=== PATIENT | female | born 1975 | race Caucasian/White ===

== ENCOUNTER 2023-07-24 06:29 | Outpatient (RCR) | payer OTHER, SELFPAY | END 2023-07-24 23:59 | disposition home or self-care (01) | LOC: RPT 06:29 | PROVIDERS: ATTENDING PHYSICIAN Radiology Radiation Oncology; FAMILY PHYSICIAN Family Medicine | DX: I97.2 Postmastectomy lymphedema syndrome (principal); C50.412 Malignant neoplasm of upper-outer quadrant of left female breast; Z17.0 Estrogen receptor positive status [ER+]; Z73.6 Limitation of activities due to disability | CPT/HCPCS: 97110; 97140; 97162 ==

== ENCOUNTER 2023-08-23 08:07 | Outpatient (RCR) | payer OTHER, SELFPAY | END 2023-08-23 23:59 | disposition home or self-care (01) | LOC: RPT 08:07 | PROVIDERS: ATTENDING PHYSICIAN Radiology Radiation Oncology | DX: I97.2 Postmastectomy lymphedema syndrome (principal); C50.412 Malignant neoplasm of upper-outer quadrant of left female breast; Z17.0 Estrogen receptor positive status [ER+]; Z73.6 Limitation of activities due to disability | CPT/HCPCS: 97110; 97140 ==

== ENCOUNTER 2023-09-18 06:16 | Outpatient (RCR) | payer OTHER, SELFPAY | END 2023-09-18 23:59 | disposition home or self-care (01) | LOC: RPT 06:16 | PROVIDERS: ATTENDING PHYSICIAN Radiology Radiation Oncology | DX: I97.2 Postmastectomy lymphedema syndrome (principal); C50.412 Malignant neoplasm of upper-outer quadrant of left female breast; Z17.0 Estrogen receptor positive status [ER+]; Z73.6 Limitation of activities due to disability | CPT/HCPCS: 97110; 97140 ==

== ENCOUNTER 2023-10-23 06:57 | Outpatient (RCR) | payer OTHER, SELFPAY | END 2023-10-23 23:59 | disposition home or self-care (01) | LOC: RPT 06:57 | PROVIDERS: ATTENDING PHYSICIAN Radiology Radiation Oncology | DX: I97.2 Postmastectomy lymphedema syndrome (principal); C50.412 Malignant neoplasm of upper-outer quadrant of left female breast; Z17.0 Estrogen receptor positive status [ER+]; Z73.6 Limitation of activities due to disability | CPT/HCPCS: 97110; 97140 ==

== ENCOUNTER 2023-11-06 06:22 | Outpatient (RCR) | payer OTHER, SELFPAY | END 2023-11-06 23:59 | disposition home or self-care (01) | LOC: RPT 06:22 | PROVIDERS: ATTENDING PHYSICIAN Radiology Radiation Oncology | DX: I89.0 Lymphedema, not elsewhere classified (principal) | CPT/HCPCS: 97110; 97140 ==

== ENCOUNTER → 2024-10-14 07:33 | Outpatient (REF) | payer OTHER, SELFPAY | LOC: PAVMRI 07:33 | PROVIDERS: ATTENDING PHYSICIAN Psychiatry & Neurology Neurology; FAMILY PHYSICIAN Family Medicine | DX: G43.709 Chronic migraine without aura, not intractable, without status migrainosus (principal); G44.1 Vascular headache, not elsewhere classified; R42 Dizziness and giddiness; G50.0 Trigeminal neuralgia | CPT/HCPCS: 70546; 70553; A9575; A9585 ==